=== PATIENT | male | born 1975 | race Caucasian/White ===

== ENCOUNTER 2016-08-25 18:32 | Emergency (ER) | payer OTHER ==
[2016-08-25 18:41] VITALS: BP 115/74; PULSE 77; RESP 16; TEMP 98.4; O2SAT 96
--- NOTE | 2016-08-25 18:50 | EDPHY ---
General Narrative: CHIEF COMPLAINT: thumb injury, possible foreign body HISTORY OF PRESENT ILLNESS: Patient was carrying lumber and was born today when he struck a tree with. He felt a shard of wood going to the right thumb, dorsal at the MCP joint. This happened within the past hour. Moderately painful if she tries to use the thumb. Minimal pain at rest. No numbness or tingling. No weakness. No significant bleeding. Tetanus was updated less than 2 years ago from a preventive standpoint. No other injury elsewhere. No pain to the hand itself. He is right-hand dominant. 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 PRIOR ORTHO INJURIES: None ESTABLISHED ORTHOPEDIST: None REVIEW OF SYSTEMS: Ten systems reviewed and are negative unless otherwise noted in the HPI EXAMINATION General Appearance: Alert, no distress Cardiovascular: Pulses normal throughout. Symmetric radial pulses 2+. Brisk cap refill Neurological: A&O, sensory symmetric, strength symmetric Skin: Warm and dry, no rash. Superficial laceration over dorsal aspect of the right thumb over the MCP joint. Extremities: Tenderness to palpation of the right thumb over the MCP joint, dorsal. Thumb extension is intact. Thumb flexion is hindered by foreign body sensation. Superficial Laceration as noted. No ecchymosis or edema. Remainder of the hand is unremarkable with normal range of motion. Neurovascular intact distal to the injury with brisk cap refill the thumb. Psychiatric: Mood and affect normal DIFFERENTIAL DIAGNOSES: Including but not limited to thumb laceration, foreign body, blunt trauma MDM: 6:50 p.m. Blunt trauma to the right thumb with possible splinter/foreign body over the dorsal aspect of the MCP joint of the thumb. He is neurovascular intact with some pain of the area. No trauma to the hand itself. Tetanus is up-to-date. X -ray is pending. Plan for digital block on exploration. Uncertain if we can retrieve this if there is a foreign body present. 7:15 p.m. X-ray does not reveal any large, obvious foreign body as interpreted by me. Still awaiting the radiologist's interpretation. I have applied a digital blocks so that we may scrub and irrigate the wound. I will explore and re- evaluate the wound after this. 9:00 p.m. Foreign body in the right thumb. This was a wooden substance, 2 cm long. This was retrieved without complication following digital block. He is feeling much better, has full range of motion without pain postprocedure. The wound was copiously irrigated and closed with 3 simple interrupted sutures. He will be treated with Augmentin and instructed to return to the emergency department 7 days for suture removal. Return sooner for signs of infection as discussed. PROCEDURE: Foreign body removed Location: Right thumb, dorsal Description: After digital block, the wound was copiously irrigated. Using sterile procedure I then extended the existing laceration by 0.5 cm. The wound was then explored. I did find a woody foreign body. This was retrieved with sterile forceps. The piece of wood measured 2 cm in length. The wound was then copiously irrigated and the wound was closed with 3, simple interrupted sutures. Patient tolerated the procedure well. He was neurovascularly intact postprocedure. Wound was dressed with bacitracin and covered. Return to the ER in 7-10 days for suture removal. PROCEDURE: Digital Block Indication: Finger laceration, possible foreign body of the thumb Consent: Verbal Location: Right thumb Anesthesia: Lidocaine 1% plain, 0.25% Marcaine plain, 5mL Description: After prepping the skin with chlorhexidine, 5 mL as above was infused. This was done at the base of the thumb on the volar aspect. There was good anesthesia. No bleeding. Brisk cap refill post procedure. Complications: None ED Precautions: Worsening pain. Erythema, edema, cyanosis, pallor, paresthesia or anesthesia. SUPERVISION: This patient was independently evaluated without direct examination by the attending physician. Case was discussed with attending physician. - Objective Vital Signs: Initial Vital Signs Temperature (C) 98.4 F 08/25/16 18:38 Heart Rate 77 08/25/16 18:38 Respiratory Rate 16 08/25/16 18:38 Blood Pressure 115/74 08/25/16 18:38 O2 Sat (%) 96 08/25/16 18:38 O2 Delivery Mode Room Air Allergies/Adverse Reactions: No Known Allergies Allergy (Unverified 10/04/09 12:53) Home Medications: Medication Instructions Recorded Valtrex 10/04/09 Amoxicillin/Clavulanate Pot 875 mg PO BID #20 tab 08/25/16 [Augmentin 875 MG TAB (*)] Genvoya Tablet 08/25/16 Departure - Departure Disposition: Home, Routine, Self-Care Clinical Impression: Foreign body of right thumb Laceration of thumb Qualifiers: Encounter type: initial encounter Laterality: right Qualified Code(s): S61.011A - Laceration without foreign body of right thumb without damage to nail , initial encounter Condition: Good Instructions: Soft Tissue Foreign Body (ED), Finger Laceration (ED), Hydrocodone/Acetaminophen (By mouth) Additional Instructions: Wound care as discussed daily. Return to the ER for signs of infection as discussed. Augmentin as discussed. Return here in 7-10 days for suture removal. Referrals: GENTRY MCGRATH [Primary Care Provider] - As per Instructions Physician,Emergency Dept, [Medical Doctor] - As per Instructions Prescriptions: Amoxicillin/Clavulanate Pot [Augmentin 875 MG TAB (*)] 875 mg PO BID #20 tab
[2016-08-25] MEDS ORDERED: HYDROCOD/APAP 5/325 PREPACK#6 BTL TAKEHOME ONE (21:03)
[2016-08-25] MEDS ORDERED: AMOXICILLIN/CLAVULANATE POT 875/125 MG TAB PO ONE (21:03)
== END 2016-08-25 21:45 | disposition home or self-care (01) ==
PROC: 0HQFXZZ Repair Right Hand Skin, External Approach (ICD-10-PCS; principal; 2016-08-25)
DX: S61.021A Laceration with foreign body of right thumb without damage to nail, initial encounter (principal); W22.8XXA Striking against or struck by other objects, initial encounter; Y93.89 Activity, other specified